=== PATIENT | female | born 1970 | race Caucasian/White ===

== ENCOUNTER 2018-05-28 15:47 | Emergency (ER) | payer SELFPAY ==
[~2018-05-28] VITALS: Ht 172.7 cm; Wt 86.8 kg
[2018-05-28 15:54] VITALS: Ht 172.7 cm; Wt 86.8 kg
[2018-05-28 16:52] LABS: PLATELET COUNT 140 x10^3mcL (130-400)
[2018-05-28 16:54] LABS: UA SPECIFIC GRAVITY >=1.030 (1.005-1.035); microscopic required? YES; urine erythrocyte TRACE (NEGATIVE)
[2018-05-28 16:55] LABS: BASOPHIL % 0 % (0-2); RED CELL DISTRIBUTION WIDTH 19.2 % (11.5-14.5)
[2018-05-28 17:13] LABS: CALCIUM 8.4 mg/dL (8.5-10.1); CARBON DIOXIDE 25.1 mmol/L (21-32); CHLORIDE SERUM 104 mmol/L (98-107); CREATININE SERUM 0.7 mg/dL (0.6-1.0); GFR1 > 60 mL/min; GLUCOSE SERUM 124 mg/dL (74-106); POTASSIUM SERUM 3.3 mmol/L (3.5-5.1); SODIUM SERUM 138 mmol/L (136-145)
[2018-05-28 17:17] LABS: ALBUMIN 3.5 g/dL (3.4-5.0); ALKALINE PHOSPHATASE 52 U/L (46-116); ALT/SGPT 13 U/L (14-59); AST/SGOT 12 U/L (15-37); BILIRUBIN TOTAL 0.41 mg/dL (0.20-1.00); TOTAL PROTEIN, SERUM 7.5 g/dL (6.4-8.2)
[2018-05-28 18:25] VITALS: BP 106/60
== END 2018-05-28 18:25 | disposition home or self-care (01) ==
LOC: ED 15:47
PROVIDERS: Emergency Medicine
DX: J20.9 Acute bronchitis, unspecified (principal); D64.9 Anemia, unspecified
CPT/HCPCS: 87804; J7030; J7613; J7644; Q0092